=== PATIENT | male | born 1950 | race Caucasian/White ===

== ENCOUNTER 2017-01-25 06:24 | Day surgery (SDC) | payer MEDICARE, OTHER ==
[2017-01-23 14:36] LABS: HEMATOCRIT 38.3 % (40.0-51.0); HEMOGLOBIN 12.6 g/dL (13.6-17.8)
[~2017-01-25 06:24] MED LIST: CITRACAL PO; KLONO1 PO; LUVOX50 PO; PATADAY OPH; PEP20 PO; PEROXIDE EX; PREDFORTE OPH; REMERON45 MG PO; SEROQUEL1C PO; SEROQUEL50 MG PO; VIGAMOX OPH
== END 2017-01-25 23:59 | disposition home or self-care (01) ==
LOC: SDC 06:24
PROVIDERS: Ophthalmology
DX: H25.20 Age-related cataract, morgagnian type, unspecified eye (principal); Z53.9 Procedure and treatment not carried out, unspecified reason
CPT/HCPCS: 85014; 85018; 93005